=== PATIENT | male | born 1975 | race Caucasian/White ===

== ENCOUNTER → 2016-03-05 | Outpatient (CLI) | payer OTHER ==
[~2016-03-05] VITALS: Ht 177.8 cm; Wt 117.9 kg
[~2016-03-05] MED LIST: ADIPEX-P37.5 MG PO; EPIPEN 2-PAK1 MG/ML IM; FLOVENT DI50 MCG/Act IH; LEXAPRO 10MG10 MG PO; PAXIL 20MG20 MG PO; PHENTERMINE15 MG PO; PRINZIDE 12.5 M1 TAB PO; PROAIR HFA0.09 MG/AC IH; SINGULAIR 110 MG/TAB PO; WELLBUTRIN XL150 MG PO; ZYLOPRIM 300MG300 MG PO
[2016-03-05 14:28] VITALS: BP 118/58; PULSE 102
[2016-03-05 16:35] VITALS: BP 118/58; PULSE 102
== END ==
LOC: LIGHT
DX: I10 Essential (primary) hypertension (principal); G47.33 Obstructive sleep apnea (adult) (pediatric); E88.81 Metabolic syndrome and other insulin resistance; E66.01 Morbid (severe) obesity due to excess calories; Z68.37 Body mass index [BMI] 37.0-37.9, adult

== ENCOUNTER → 2016-05-07 | Outpatient (CLI) | payer OTHER ==
[~2016-05-07] VITALS: Ht 177.8 cm; Wt 123.8 kg
[2016-05-07 13:22] VITALS: BP 135/72; PULSE 89
[2016-10-28 12:46] VITALS: BP 146/70; PULSE 64
== END ==
LOC: LIGHT 13:20
DX: I10 Essential (primary) hypertension (principal); G47.33 Obstructive sleep apnea (adult) (pediatric); E88.81 Metabolic syndrome and other insulin resistance; E66.01 Morbid (severe) obesity due to excess calories; Z68.37 Body mass index [BMI] 37.0-37.9, adult

== ENCOUNTER → 2016-06-25 | Outpatient (CLI) | payer OTHER | LOC: COL.RAD 07:22 | DX: M25.511 Pain in right shoulder (principal) ==

== ENCOUNTER → 2016-11-18 | Outpatient (CLI) | payer OTHER ==
[~2016-11-18] VITALS: Ht 177.8 cm; Wt 123.8 kg
[2016-11-18 15:47] VITALS: BP 130/60; PULSE 60
== END ==
LOC: LIGHT 07-02 14:47
DX: I10 Essential (primary) hypertension (principal); G47.33 Obstructive sleep apnea (adult) (pediatric); E88.81 Metabolic syndrome and other insulin resistance; E66.01 Morbid (severe) obesity due to excess calories; Z68.39 Body mass index [BMI] 39.0-39.9, adult; Z71.3 Dietary counseling and surveillance

== ENCOUNTER → 2016-11-20 | Outpatient (CLI) | payer OTHER | LOC: BHSO 08:56 | DX: Z01.818 Encounter for other preprocedural examination (principal) ==

== ENCOUNTER → 2016-12-23 | Outpatient (CLI) | payer OTHER ==
[~2016-12-23] MED LIST changes: +ALBUTEROL0.83 MG/ML IH; +ARNUITY IH; +FLONASEALLERGY NS; +PREDNISONE20 MG PO; +PROAIR RES117 MCG/Ac IH; +TESSALON P100 MG/CAP PO; +XYZAL5 MG PO; +ZITHROMAX Z PA250 MG PO; +ZYRTEC 10MG10 MG PO
== END ==
LOC: LIGHT 07:45
DX: Z01.89 Encounter for other specified special examinations (principal)

== ENCOUNTER 2016-12-24 11:37 | Emergency (ER) | payer OTHER ==
[~2016-12-24] VITALS: Ht 177.8 cm; Wt 125.9 kg
[~2016-12-24 11:37] MED LIST changes: -ALBUTEROL0.83 MG/ML IH; -ARNUITY IH; -FLONASEALLERGY NS; -PREDNISONE20 MG PO; -PROAIR RES117 MCG/Ac IH; -TESSALON P100 MG/CAP PO; -XYZAL5 MG PO; -ZITHROMAX Z PA250 MG PO; -ZYRTEC 10MG10 MG PO
[2016-12-24 11:43] VITALS: TEMP 99.2
[2016-12-24] MEDS ORDERED: ZYRTEC 10MG10 MG PO (12:05)
[2016-12-24] MEDS ORDERED: TESSALON P100 MG/CAP PO (12:34)
[2016-12-24] MEDS ORDERED: ZITHROMAX Z PA250 MG PO (12:34)
[2016-12-24] MEDS ORDERED: PREDNISONE20 MG PO (12:34)
[2016-12-24] MEDS ORDERED: ALBUTEROL0.83 MG/ML IH (12:41)
[2016-12-24 13:29] VITALS: BP 130/73; PULSE 98
== END 2016-12-24 13:33 | disposition home or self-care (01) ==
LOC: COL.ER 11:37
DX: J45.901 Unspecified asthma with (acute) exacerbation (principal); J20.9 Acute bronchitis, unspecified; I10 Essential (primary) hypertension
CPT/HCPCS: J7512

== ENCOUNTER 2017-01-15 05:37 | Day surgery (SDC) | payer OTHER ==
[~2017-01-15] VITALS: Ht 177.8 cm; Wt 123.2 kg
[2017-01-15] VITALS (9 sets, daily range): BP systolic 95–144; BP diastolic 65–90; PULSE 81–111; TEMP 97.9–98.8
[~2017-01-15 05:37] MED LIST changes: +ALBUTEROL0.83 MG/ML IH; +PREDNISONE20 MG PO; +TESSALON P100 MG/CAP PO; +ZITHROMAX Z PA250 MG PO; +ZYRTEC 10MG10 MG PO
[2017-01-15] MEDS ORDERED: FLONASEALLERGY NS (06:03)
[2017-01-15] MEDS ORDERED: ARNUITY IH (06:03)
[2017-01-15] MEDS ORDERED: XYZAL5 MG PO (06:04)
[2017-01-15] MEDS ORDERED: PROAIR RES117 MCG/Ac IH (06:05)
[2017-01-16 02:06] VITALS: BP 144/77; PULSE 93; TEMP 99.2
[2017-01-16 06:00] VITALS: BP 137/74; PULSE 87; TEMP 97.4
[2017-01-16 08:11] VITALS: BP 126/73; PULSE 86; TEMP 97.6
[2017-01-16 10:05] VITALS: BP 135/69; PULSE 92; TEMP 98.5
[2017-01-16 12:55] VITALS: BP 130/72; PULSE 87; TEMP 98.7
== END 2017-01-16 18:30 ==
LOC: SDCO 05:37 → JCC 11:14 → SDCO 01-16 18:30
DX: E66.01 Morbid (severe) obesity due to excess calories (principal); Z68.39 Body mass index [BMI] 39.0-39.9, adult; E88.81 Metabolic syndrome and other insulin resistance; I10 Essential (primary) hypertension; J45.909 Unspecified asthma, uncomplicated; G47.30 Sleep apnea, unspecified; M10.9 Gout, unspecified; F41.9 Anxiety disorder, unspecified
CPT/HCPCS: OP; A9284; J0690; J1100; J1170; J1720; J1885; J2270; J2310; J2405; J2704; J7120

== ENCOUNTER 2017-01-21 15:31 | Emergency (ER) | payer OTHER ==
[~2017-01-21] VITALS: Ht 177.8 cm; Wt 115.9 kg
[~2017-01-21 15:31] MED LIST changes: +ARNUITY IH; +FLONASEALLERGY NS; +PROAIR RES117 MCG/Ac IH; +XYZAL5 MG PO
[2017-01-21 15:36] VITALS: TEMP 98.2
[2017-01-21 16:10] LABS: BASO % 0.3 % (0.0-2.0); EOS % 0.1 % (0-4.0); GRAN # 7.2 (1.4-6.5); GRAN % 79.9 % (42.2-75.2); HEMATOCRIT 48.1 % (42.0-52.0); HEMOGLOBIN 16.8 g/dl (13.5-18.0); LYMPH # 1.2 (1.2-3.4); LYMPH % 12.8 % (20.0-51.0); MEAN CELL VOLUME 88 fl (80.0-100.0); MEAN CORPUSCULAR HEMOGLOBIN 31 pg (27.0-31.0); MEAN CORPUSCULAR HGB CONC 35 g/dl (33.0-37.0); MEAN PLATELET VOLUME 10.3 fl (7.4-10.4); MONO # 0.6 (0.1-0.6); MONO % 6.5 % (1.7-9.3); PLATELET COUNT 282 K/mm3 (130-400); RED BLOOD COUNT 5.49 M/mm3 (4.20-5.60)
[2017-01-21] MEDS ORDERED: ROXICODONE 55 MG/TAB PO (16:18)
[2017-01-21] MEDS ORDERED: ZOFRAN 4MG T4 MG/TAB PO (16:19)
[2017-01-21 16:21] LABS: ADJUSTED CALCIUM 8.9 mg/dL (8.4-10.2); BILIRUBIN,TOTAL 1.4 mg/dL (0.0-1.0); C-REACTIVE PROTEIN 1.7 mg/dL (0.0-0.9); CALCIUM 9.7 mg/dL (8.4-10.2); CREATININE, serum 0.96 mg/dL (0.66-1.25); POTASSIUM 4.3 mmol/L (3.4-5.0); TOTAL PROTEIN 7.9 gm/dL (6.4-8.2)
[2017-01-21 18:56] VITALS: BP 110/64; PULSE 84
[2017-01-27] MEDS ORDERED: VITAMIN D31000 IU PO (15:55)
[2017-01-27] MEDS ORDERED: FLINTSTONES COM1 CT1 PO (15:55)
[2017-01-27] MEDS ORDERED: BIOTIN5000 MCG PO (15:56)
[2017-01-27] MEDS ORDERED: CALCIUM CITRATE1 TA4 PO (15:56)
== END 2017-01-21 18:57 | disposition home or self-care (01) ==
LOC: COL.ER 15:31
PROVIDERS: Emergency Medicine
DX: R11.2 Nausea with vomiting, unspecified (principal); R19.7 Diarrhea, unspecified; J45.909 Unspecified asthma, uncomplicated; Z98.84 Bariatric surgery status; Z98.890 Other specified postprocedural states
CPT/HCPCS: J2405; J2550; J7030

== ENCOUNTER → 2017-01-27 | Outpatient (CLI) | payer OTHER ==
[~2017-01-27] VITALS: Ht 177.8 cm; Wt 114.8 kg
[~2017-01-27] MED LIST changes: +BIOTIN5000 MCG PO; +CALCIUM CITRATE1 TA4 PO; +FLINTSTONES COM1 CT1 PO; +ROXICODONE 55 MG/TAB PO; +VITAMIN D31000 IU PO; +ZOFRAN 4MG T4 MG/TAB PO
[2017-01-27 15:57] VITALS: BP 118/86; PULSE 84
== END ==
LOC: LIGHT 08:45
DX: I10 Essential (primary) hypertension (principal); G47.33 Obstructive sleep apnea (adult) (pediatric); E88.81 Metabolic syndrome and other insulin resistance; E66.01 Morbid (severe) obesity due to excess calories; Z68.36 Body mass index [BMI] 36.0-36.9, adult; Z71.3 Dietary counseling and surveillance

== ENCOUNTER → 2017-03-10 | Outpatient (CLI) | payer OTHER ==
[~2017-03-10] VITALS: Ht 177.8 cm; Wt 105.9 kg
[2017-03-10 14:31] VITALS: BP 106/80; PULSE 64
== END ==
LOC: LIGHT 09:30
DX: I10 Essential (primary) hypertension (principal); G47.33 Obstructive sleep apnea (adult) (pediatric); E88.81 Metabolic syndrome and other insulin resistance; E66.01 Morbid (severe) obesity due to excess calories; Z68.33 Body mass index [BMI] 33.0-33.9, adult; Z71.3 Dietary counseling and surveillance

== ENCOUNTER → 2017-04-21 | Outpatient (CLI) | payer OTHER ==
[~2017-04-21] VITALS: Ht 177.8 cm; Wt 100.0 kg
[2017-04-21 14:29] VITALS: BP 120/80; PULSE 76
== END ==
LOC: LIGHT 08:46
DX: I10 Essential (primary) hypertension (principal); G47.33 Obstructive sleep apnea (adult) (pediatric); E88.81 Metabolic syndrome and other insulin resistance; E66.01 Morbid (severe) obesity due to excess calories; Z68.31 Body mass index [BMI] 31.0-31.9, adult; Z71.3 Dietary counseling and surveillance
CPT/HCPCS: G0463

== ENCOUNTER → 2017-07-14 | Outpatient (CLI) | payer OTHER ==
[~2017-07-14] VITALS: Ht 177.8 cm; Wt 90.7 kg
[2017-07-14 15:18] VITALS: BP 118/72; PULSE 80
== END ==
LOC: LIGHT 08:52
DX: Z98.84 Bariatric surgery status (principal); G47.33 Obstructive sleep apnea (adult) (pediatric); E88.81 Metabolic syndrome and other insulin resistance; E66.01 Morbid (severe) obesity due to excess calories; Z68.28 Body mass index [BMI] 28.0-28.9, adult; Z71.3 Dietary counseling and surveillance
CPT/HCPCS: G0463

== ENCOUNTER → 2018-01-12 | Outpatient (CLI) | payer OTHER ==
[~2018-01-12] VITALS: Ht 177.8 cm; Wt 90.7 kg
[2018-01-12 14:09] VITALS: BP 122/76; PULSE 88
== END ==
LOC: LIGHT 11:55
DX: G47.33 Obstructive sleep apnea (adult) (pediatric) (principal); E88.81 Metabolic syndrome and other insulin resistance; Z98.84 Bariatric surgery status; E66.01 Morbid (severe) obesity due to excess calories; Z68.28 Body mass index [BMI] 28.0-28.9, adult; Z71.3 Dietary counseling and surveillance
CPT/HCPCS: G0463